=== PATIENT | female | born 1945 | race Caucasian/White ===

== ENCOUNTER → 2018-06-17 | Outpatient (CLI) | payer MEDICARE, BC | END | disposition home or self-care (01) | LOC: CFH 10:07 | PROVIDERS: ATTEND Internal Medicine Gastroenterology | DX: Z12.31 Encounter for screening mammogram for malignant neoplasm of breast (principal); K21.9 Gastro-esophageal reflux disease without esophagitis; R13.12 Dysphagia, oropharyngeal phase; E11.65 Type 2 diabetes mellitus with hyperglycemia; Z68.36 Body mass index [BMI] 36.0-36.9, adult | CPT/HCPCS: 77067; 78264; A9541 ==

== ENCOUNTER 2018-06-27 01:25 | Inpatient (IN) | payer MEDICARE, BC ==
[~2018-06-27] VITALS: Ht 170.2 cm; Wt 80.9 kg
[2018-06-27] MEDS ORDERED: methylPREDNISolone SOD SUCC 125 MG/2 ML ONE (01:28)
[2018-06-27] MEDS ORDERED: MAGNESIUM SULFATE PMX 2GM/50ML 50 ML IV ONE (01:30)
[2018-06-27] MEDS ORDERED: MAGNESIUM SULFATE PMX 1GM/100ML IV ONE (01:30)
[2018-06-27] MEDS ORDERED: PROPOFOL 100 ML IV PRN (01:36)
[2018-06-27] MEDS ORDERED: NS + 20MEQ KCL 1,000 ML IV SCH (01:54)
[2018-06-27 01:55] LABS: BASOPHILS # (AUTO) 0.02 x10^3/uL (0-0.1); BASOPHILS % (AUTO) 0 % (0-1); EOSINOPHILS # (AUTO) 0.37 x10^3/uL (0-0.4); EOSINOPHILS % (AUTO) 4 % (1-7); LYMPHOCYTES # (AUTO) 4.52 x10^3/uL (1-3.4); LYMPHOCYTES % (AUTO) 49 % (22-44); MD NO; MEAN CORPUSCULAR HGB CONC 33.8 g/dL (32.4-35.8); MEAN CORPUSCULAR VOLUME 91.5 fL (80-100); MEAN PLATELET VOLUME 9.4 fL (7.4-10.4); MONOCYTES # (AUTO) 0.72 x10^3/uL (0.2-0.8); MONOCYTES % (AUTO) 8 % (2-9); NEUTROPHILS # (AUTO) 3.69 x10^3/uL (1.8-6.8); NEUTROPHILS % (AUTO) 40 % (42-75); PLATELET COUNT 282 x10^3/uL (130-400); RED BLOOD COUNT 4.93 x10^6/uL (3.82-5.3); RED CELL DISTRIBUTION WIDTH 13.7 % (9.6-15.2)
[2018-06-27] MEDS ORDERED: ALBUTEROL NEB (01:59)
[2018-06-27] MEDS ORDERED: ALBUTEROL MDI (01:59)
[2018-06-27] MEDS ORDERED: NOVOLOG (01:59)
[2018-06-27] MEDS ORDERED: HUMALOG (01:59)
[2018-06-27] MEDS ORDERED: LORazepam 2 MG/ML, 1ML IVPush PRN (02:00)
[2018-06-27] MEDS ORDERED: DOCUSATE 100 MG CAPSULE PO PRN (02:00)
[2018-06-27] MEDS ORDERED: SODIUM CHLORIDE FLUSH 10ML SYR IVF PRN (02:00)
[2018-06-27] MEDS ORDERED: MIDAZOLAM 1 MG/ML, 5ML IVPush ONE (02:00)
[2018-06-27] MEDS ORDERED: ONDANSETRON 2MG/ML, 2ML IVPush PRN (02:00)
[2018-06-27] MEDS: methylPREDNISolone SOD SUCC 125 MG/2 ML IVPush SCH ×4 (02:00→20:08)
[2018-06-27] MEDS ORDERED: methylPREDNISolone SOD SUCC 125 MG/2 ML IVP ONE (02:00)
[2018-06-27] MEDS ORDERED: ALBUTEROL/IPRATROPIUM 2.5MG/0.5MG, 3 ML NPPB SCH (02:00)
[2018-06-27] MEDS ORDERED: SUCCINYLCHOLINE 20 MG/ML, 10ML IVPush ONE (02:00)
[2018-06-27] MEDS ORDERED: ETOMIDATE 20 MG/10 ML IV ONE (02:00)
[2018-06-27] MEDS ORDERED: SODIUM CHLORIDE FLUSH 10ML SYR IVF ONE (02:00)
[2018-06-27] MEDS ORDERED: POLYETHYLENE GLYCOL 17 GM PACKET PO PRN (02:00)
[2018-06-27] MEDS ORDERED: MORPHINE SULFATE 4 MG/ML, 1ML ONE (02:04)
[2018-06-27 02:07] LABS: ALANINE AMINOTRANSFERASE 32 U/L (12-78); ALBUMIN 3.3 g/dL (3.4-5.0); ANION GAP 9 mmol/L (5-15); CALCIUM 7.9 mg/dL (8.5-10.1); CHLORIDE 106 mmol/L (98-107); CREATININE 0.91 mg/dL (0.55-1.02)
[2018-06-27] MEDS: morphine SULFATE 10 MG/ML, 1ML IVPush PRN ×2 (02:08→15:37)
[2018-06-27 02:11] LABS: ALKALINE PHOSPHATASE 79 U/L (45-117); BILIRUBIN,TOTAL 0.7 mg/dL (0.2-1.0); PROTHROMBIN TIME 10.4 Seconds (9.6-11.5); TOTAL PROTEIN 7.7 g/dL (6.4-8.2); TROPONIN I < 0.015 ng/mL (0.000-0.045)
[2018-06-27] MEDS ORDERED: LORazepam 2 MG/ML, 1ML ONE (02:37)
[2018-06-27] MEDS ORDERED: CEFTRIAXONE PMX 1GM/50ML 50 ML ONE (02:44)
[2018-06-27] MEDS ORDERED: NS + 20MEQ KCL 1,000 ML IV ONE (02:45)
[2018-06-27] MEDS ORDERED: AZITHROMYCIN 500 MG in SODIUM CHLORIDE 0.9% 250 ML IVPB ONE (03:00)
[2018-06-27] MEDS ORDERED: CEFTRIAXONE 1,000 MG in SODIUM CHLORIDE 0.9% 50 ML IVPB ONE (03:00)
[2018-06-27] MEDS ORDERED: ENOXAPARIN 40 MG/0.4 ML ONE (03:05)
[2018-06-27] MEDS: ENOXAPARIN 40 MG/0.4 ML SQ SCH (03:06)
[2018-06-27] MEDS ORDERED: FENTANYL PF 100 MCG/2ML ONE ×3 (03:16→05:57)
[2018-06-27] MEDS ORDERED: LIDOCAINE-MPF 1%, 2ML ENDO PRN (03:30)
[2018-06-27] MEDS: INSULIN REGULAR 100 UNITS/ML, 3ML VIAL SQ-INSULIN SCH ×4 (03:30→21:11)
[2018-06-27] MEDS ORDERED: PHARMACY MAY ADJ FOR RENAL FX MC SCH (03:30)
[2018-06-27] MEDS: FENTANYL PF 100 MCG/2ML IVPush PRN ×4 (03:42→06:49)
[2018-06-27] MEDS: PROPOFOL 100 ML IV PRN ×4 (04:28→21:05)
[2018-06-27] MEDS ORDERED: BECL10.62 INH (05:48)
[2018-06-27] MEDS ORDERED: GEMF600T4 PO (05:48)
[2018-06-27] MEDS ORDERED: NAPR-856 PO (05:48)
[2018-06-27] MEDS ORDERED: VIT B COMPLEX PO (05:48)
[2018-06-27] MEDS ORDERED: PARO20TA4 PO (05:48)
[2018-06-27] MEDS ORDERED: ALBU6.7H INH (05:48)
[2018-06-27] MEDS ORDERED: PANT40TA5 PO (05:48)
[2018-06-27] MEDS ORDERED: MUPIROCIN 2% (05:48)
[2018-06-27] MEDS ORDERED: LISI-167 PO (05:48)
[2018-06-27] MEDS ORDERED: INSU100V5 SQ-INSULIN (05:51)
[2018-06-27] MEDS ORDERED: NPH,100V SQ-INSULIN ×2 (05:51→05:53)
[2018-06-27] MEDS ORDERED: ALBUTEROL/IPRATROPIUM 2.5MG/0.5MG, 3 ML ONE (07:09)
[2018-06-27] MEDS ORDERED: SODIUM CHLORIDE 0.9% 1,000ML IVBOLUS ONE (08:30)
[2018-06-27] MEDS: FAMOTIDINE 20 MG/2 ML IVPush SCH ×2 (09:47→20:08)
[2018-06-27] MEDS: SENNA/DOCUSATE TABLET PO SCH (09:48)
[2018-06-27] MEDS: SODIUM CHLORIDE 0.9% 1,000 ML IV SCH ×2 (09:49→23:43)
[2018-06-27] MEDS: ALBUTEROL/IPRATROPIUM 2.5MG/0.5MG, 3 ML INLINE SCH ×4 (10:30→22:10)
[2018-06-27] MEDS ORDERED: PROPOFOL 10 MG/ML, 100ML IV ONE (15:55)
[2018-06-27] MEDS ORDERED: SUCCINYLCHOLINE 20 MG/ML, 10ML ONE (15:55)
[2018-06-27] MEDS ORDERED: ROCURONIUM 10MG/ML,5ML ONE (15:55)
[2018-06-27] MEDS ORDERED: MIDAZOLAM 1 MG/ML, 5ML ONE (15:55)
[2018-06-27] MEDS ORDERED: ETOMIDATE 40 MG/20 ML ONE (15:55)
[2018-06-28] MEDS: PROPOFOL 100 ML IV PRN (01:35)
[2018-06-28] MEDS: ALBUTEROL/IPRATROPIUM 2.5MG/0.5MG, 3 ML INLINE SCH ×3 (01:46→11:00)
[2018-06-28] MEDS: methylPREDNISolone SOD SUCC 125 MG/2 ML IVPush SCH ×4 (03:04→20:29)
[2018-06-28] MEDS: ENOXAPARIN 40 MG/0.4 ML SQ SCH (03:05)
[2018-06-28] MEDS: INSULIN REGULAR 100 UNITS/ML, 3ML VIAL SQ-INSULIN SCH ×4 (03:15→20:37)
[2018-06-28 04:55] LABS: MEAN CORPUSCULAR HEMOGLOBIN 30.6 pg (27.0-34.8); MEAN CORPUSCULAR HGB CONC 33.4 g/dL (32.4-35.8); MEAN CORPUSCULAR VOLUME 91.7 fL (80-100); MEAN PLATELET VOLUME 9.6 fL (7.4-10.4); PLATELET COUNT 256 x10^3/uL (130-400); RED BLOOD COUNT 4.16 x10^6/uL (3.82-5.3); RED CELL DISTRIBUTION WIDTH 14.6 % (9.6-15.2)
[2018-06-28 05:04] LABS: ANION GAP 8 mmol/L (5-15); CALCIUM 6.9 mg/dL (8.5-10.1); CHLORIDE 112 mmol/L (98-107); CREATININE 0.68 mg/dL (0.55-1.02)
[2018-06-28 05:38] LABS: BASOPHILS # (AUTO) 0.05 x10^3/uL (0-0.1); BASOPHILS % (AUTO) 0 % (0-1); EOSINOPHILS # (AUTO) 0.03 x10^3/uL (0-0.4); EOSINOPHILS % (AUTO) 0 % (1-7); LYMPHOCYTES # (AUTO) 1.27 x10^3/uL (1-3.4); LYMPHOCYTES % (AUTO) 9 % (22-44); MD SCAN; MONOCYTES # (AUTO) 0.32 x10^3/uL (0.2-0.8); MONOCYTES % (AUTO) 2 % (2-9); NEUTROPHILS # (AUTO) 11.99 x10^3/uL (1.8-6.8); NEUTROPHILS % (AUTO) 88 % (42-75)
[2018-06-28] MEDS ORDERED: ALBUTEROL SULFATE 2.5 MG/3 ML NPPB PRN (09:00)
[2018-06-28] MEDS: MULTIVITS,STRESS FORMULA 1 TABLET PO SCH (09:00)
[2018-06-28] MEDS: FAMOTIDINE 20 MG/2 ML IVPush SCH (09:02)
[2018-06-28] MEDS: LISINOPRIL 10 MG TABLET PO SCH (09:03)
[2018-06-28] MEDS: PAROXETINE 20 MG TABLET PO SCH (09:03)
[2018-06-28] MEDS: GEMFIBROZIL 600 MG TABLET PO SCH ×2 (09:03→20:29)
[2018-06-28] MEDS: SENNA/DOCUSATE TABLET PO SCH (09:03)
[2018-06-28] MEDS: INSULIN GLARGINE 100 UNITS/ML, PEN SQ-INSULIN SCH (09:04)
[2018-06-28] MEDS: BUDESONIDE 0.5 MG/2 ML INHA NPPB SCH ×2 (09:11→19:16)
[2018-06-28] MEDS ORDERED: CEFTRIAXONE PMX 1GM/50ML 50 ML IV SCH (11:00)
[2018-06-28] MEDS ORDERED: AZITHROMYCIN 500 MG in SODIUM CHLORIDE 0.9% 250 ML IV SCH (11:30)
[2018-06-28] MEDS: ALBUTEROL/IPRATROPIUM 2.5MG/0.5MG, 3 ML NPPB SCH ×3 (14:59→23:32)
[2018-06-28] MEDS: FAMOTIDINE 20 MG TABLET PO SCH (20:29)
[2018-06-28] MEDS: ACETAMINOPHEN 325 MG TABLET PO PRN (21:46)
[2018-06-29] MEDS: methylPREDNISolone SOD SUCC 125 MG/2 ML IVPush SCH (03:59)
[2018-06-29] MEDS: ENOXAPARIN 40 MG/0.4 ML SQ SCH (03:59)
[2018-06-29] MEDS: INSULIN REGULAR 100 UNITS/ML, 3ML VIAL SQ-INSULIN SCH ×4 (04:00→20:42)
[2018-06-29] MEDS: ALBUTEROL/IPRATROPIUM 2.5MG/0.5MG, 3 ML NPPB SCH ×6 (04:06→23:00)
[2018-06-29 04:28] LABS: BASOPHILS # (AUTO) 0.04 x10^3/uL (0-0.1); BASOPHILS % (AUTO) 0 % (0-1); EOSINOPHILS % (AUTO) 0 % (1-7); LYMPHOCYTES # (AUTO) 1.32 x10^3/uL (1-3.4); LYMPHOCYTES % (AUTO) 10 % (22-44); MD NO; MEAN CORPUSCULAR HEMOGLOBIN 30.8 pg (27.0-34.8); MEAN CORPUSCULAR HGB CONC 33.4 g/dL (32.4-35.8); MEAN CORPUSCULAR VOLUME 92.1 fL (80-100); MEAN PLATELET VOLUME 9.4 fL (7.4-10.4); MONOCYTES # (AUTO) 0.37 x10^3/uL (0.2-0.8); MONOCYTES % (AUTO) 3 % (2-9); NEUTROPHILS # (AUTO) 11.39 x10^3/uL (1.8-6.8); NEUTROPHILS % (AUTO) 87 % (42-75); PLATELET COUNT 243 x10^3/uL (130-400); RED BLOOD COUNT 4.26 x10^6/uL (3.82-5.3); RED CELL DISTRIBUTION WIDTH 14.4 % (9.6-15.2)
[2018-06-29 04:40] LABS: CHLORIDE 112 mmol/L (98-107)
[2018-06-29 04:45] LABS: ANION GAP 8 mmol/L (5-15); CALCIUM 7.3 mg/dL (8.5-10.1); CREATININE 0.74 mg/dL (0.55-1.02)
[2018-06-29] MEDS: BUDESONIDE 0.5 MG/2 ML INHA NPPB SCH ×2 (06:40→21:00)
[2018-06-29 08:00] VITALS: BP 114/61
[2018-06-29] MEDS: INSULIN GLARGINE 100 UNITS/ML, PEN SQ-INSULIN SCH (08:58)
[2018-06-29] MEDS: FAMOTIDINE 20 MG TABLET PO SCH ×2 (08:59→20:41)
[2018-06-29] MEDS: GEMFIBROZIL 600 MG TABLET PO SCH ×2 (08:59→20:41)
[2018-06-29] MEDS: SENNA/DOCUSATE TABLET PO SCH (08:59)
[2018-06-29] MEDS: LISINOPRIL 10 MG TABLET PO SCH (09:00)
[2018-06-29] MEDS: MULTIVITS,STRESS FORMULA 1 TABLET PO SCH (09:00)
[2018-06-29] MEDS: DOXYCYCLINE 100MG TABLET PO SCH ×2 (09:00→20:41)
[2018-06-29] MEDS: PAROXETINE 20 MG TABLET PO SCH (09:00)
[2018-06-29 09:53] LABS: RAPID INFLUENZA A Negative (Negative); RAPID INFLUENZA B Negative (Negative)
[2018-06-29 11:49] VITALS: BP 128/66
[2018-06-29] MEDS: ACETAMINOPHEN 325 MG TABLET PO PRN (18:45)
[2018-06-29 19:08] VITALS: BP 138/72
[2018-06-30 01:25] VITALS: BP 130/68
[2018-06-30] MEDS: ALBUTEROL/IPRATROPIUM 2.5MG/0.5MG, 3 ML NPPB SCH ×6 (03:00→23:30)
[2018-06-30] MEDS: INSULIN REGULAR 100 UNITS/ML, 3ML VIAL SQ-INSULIN SCH ×4 (03:14→20:44)
[2018-06-30 05:42] LABS: BASOPHILS # (AUTO) 0.04 x10^3/uL (0-0.1); BASOPHILS % (AUTO) 0 % (0-1); EOSINOPHILS % (AUTO) 0 % (1-7); LYMPHOCYTES # (AUTO) 1.93 x10^3/uL (1-3.4); LYMPHOCYTES % (AUTO) 20 % (22-44); MD NO; MEAN CORPUSCULAR HEMOGLOBIN 31.1 pg (27.0-34.8); MEAN CORPUSCULAR VOLUME 91.5 fL (80-100); MEAN PLATELET VOLUME 9.6 fL (7.4-10.4); MONOCYTES # (AUTO) 0.59 x10^3/uL (0.2-0.8); MONOCYTES % (AUTO) 6 % (2-9); NEUTROPHILS # (AUTO) 7.13 x10^3/uL (1.8-6.8); NEUTROPHILS % (AUTO) 74 % (42-75); PLATELET COUNT 232 x10^3/uL (130-400); RED BLOOD COUNT 4.41 x10^6/uL (3.82-5.3); RED CELL DISTRIBUTION WIDTH 14.3 % (9.6-15.2)
[2018-06-30 05:56] LABS: CHLORIDE 107 mmol/L (98-107)
[2018-06-30 06:02] LABS: ANION GAP 8 mmol/L (5-15); CALCIUM 7.6 mg/dL (8.5-10.1); CREATININE 0.72 mg/dL (0.55-1.02); TRIGLYCERIDES 133 mg/dL (50-200)
[2018-06-30] MEDS: ACETAMINOPHEN 325 MG TABLET PO PRN ×2 (06:29→20:45)
[2018-06-30] MEDS: BUDESONIDE 0.5 MG/2 ML INHA NPPB SCH ×2 (06:50→19:30)
[2018-06-30 07:45] VITALS: BP 117/61
[2018-06-30] MEDS: INSULIN GLARGINE 100 UNITS/ML, PEN SQ-INSULIN SCH (08:35)
[2018-06-30] MEDS: SENNA/DOCUSATE TABLET PO SCH (08:35)
[2018-06-30] MEDS: GEMFIBROZIL 600 MG TABLET PO SCH ×2 (08:35→20:44)
[2018-06-30] MEDS: MULTIVITS,STRESS FORMULA 1 TABLET PO SCH (08:35)
[2018-06-30] MEDS: DOXYCYCLINE 100MG TABLET PO SCH ×2 (08:35→20:45)
[2018-06-30] MEDS: FAMOTIDINE 20 MG TABLET PO SCH ×2 (08:36→20:45)
[2018-06-30] MEDS: LISINOPRIL 10 MG TABLET PO SCH (08:36)
[2018-06-30] MEDS: PAROXETINE 20 MG TABLET PO SCH (08:36)
[2018-06-30] MEDS: ENOXAPARIN 40 MG/0.4 ML SQ SCH (08:38)
[2018-06-30 13:32] VITALS: BP 156/71
[2018-06-30] MEDS ORDERED: GUAIFENESIN ER 600 MG TABLET PO ONE (15:30)
[2018-06-30] MEDS ORDERED: DEXTROMETHORPHAN 30 MG/5 ML ORAL SOL PO PRN (16:00)
[2018-06-30] MEDS ORDERED: INSULIN GLARGINE 100 UNITS/ML, PEN SQ-INSULIN ONE (16:45)
[2018-06-30 19:54] VITALS: BP 148/71
[2018-06-30] MEDS: GUAIFENESIN ER 600 MG TABLET PO SCH (20:45)
[2018-07-01 00:59] VITALS: BP 126/73
[2018-07-01] MEDS: ALBUTEROL/IPRATROPIUM 2.5MG/0.5MG, 3 ML NPPB SCH ×3 (02:20→10:19)
[2018-07-01] MEDS: INSULIN REGULAR 100 UNITS/ML, 3ML VIAL SQ-INSULIN SCH ×2 (03:30→09:30)
[2018-07-01 05:43] LABS: BASOPHILS # (AUTO) 0.03 x10^3/uL (0-0.1); BASOPHILS % (AUTO) 0 % (0-1); EOSINOPHILS # (AUTO) 0.06 x10^3/uL (0-0.4); EOSINOPHILS % (AUTO) 1 % (1-7); LYMPHOCYTES # (AUTO) 2.98 x10^3/uL (1-3.4); LYMPHOCYTES % (AUTO) 32 % (22-44); MD NO; MEAN CORPUSCULAR HGB CONC 33.8 g/dL (32.4-35.8); MEAN CORPUSCULAR VOLUME 91.5 fL (80-100); MEAN PLATELET VOLUME 9.4 fL (7.4-10.4); MONOCYTES # (AUTO) 0.68 x10^3/uL (0.2-0.8); MONOCYTES % (AUTO) 7 % (2-9); NEUTROPHILS % (AUTO) 60 % (42-75); PLATELET COUNT 246 x10^3/uL (130-400); RED BLOOD COUNT 4.81 x10^6/uL (3.82-5.3); RED CELL DISTRIBUTION WIDTH 14.4 % (9.6-15.2)
[2018-07-01 05:53] LABS: ANION GAP 10 mmol/L (5-15); CHLORIDE 106 mmol/L (98-107); CREATININE 0.66 mg/dL (0.55-1.02)
[2018-07-01] MEDS: BUDESONIDE 0.5 MG/2 ML INHA NPPB SCH (06:39)
[2018-07-01 07:42] VITALS: BP 97/60
[2018-07-01] MEDS ORDERED: BENZONATATE 100 MG CAPSULE PO PRN (08:00)
[2018-07-01] MEDS: ENOXAPARIN 40 MG/0.4 ML SQ SCH (08:23)
[2018-07-01] MEDS: LISINOPRIL 10 MG TABLET PO SCH (09:00)
[2018-07-01] MEDS: SENNA/DOCUSATE TABLET PO SCH (09:00)
[2018-07-01] MEDS ORDERED: INSULIN GLARGINE 100 UNITS/ML, PEN SQ-INSULIN SCH (09:00)
[2018-07-01] MEDS ORDERED: FAMO20TA7 PO (10:48)
[2018-07-01] MEDS ORDERED: BENZ-17 PO (10:48)
[2018-07-01] MEDS ORDERED: GUAI600T31 PO (10:48)
[2018-07-01] MEDS ORDERED: DEXT30SU8 PO (10:48)
[2018-07-01] MEDS ORDERED: METH4TAB2 PO (10:48)
[2018-07-01] MEDS: MULTIVITS,STRESS FORMULA 1 TABLET PO SCH (11:18)
[2018-07-01] MEDS: GUAIFENESIN ER 600 MG TABLET PO SCH (11:19)
[2018-07-01] MEDS: FAMOTIDINE 20 MG TABLET PO SCH (11:19)
[2018-07-01] MEDS: PAROXETINE 20 MG TABLET PO SCH (11:20)
[2018-07-01] MEDS: GEMFIBROZIL 600 MG TABLET PO SCH (11:20)
[2018-07-01] MEDS: DOXYCYCLINE 100MG TABLET PO SCH (11:21)
[2018-07-01 12:43] VITALS: BP 106/68
== END 2018-07-01 14:50 | disposition home or self-care (01) | DRG 208 ==
LOC: SUATTDRO 01:53 → ED 02:00 → EDIP 02:43 → CCU 07:24 → 3NE 06-29 10:18 → DCLOUNGE 07-01 14:23
PROVIDERS: ADMIT Family Medicine; ATTEND Hospitalist
PROC: 5A1945Z Respiratory Ventilation, 24-96 Consecutive Hours (ICD-10-PCS; 2018-06-27)
PROC: 0BH17EZ Insertion of Endotracheal Airway into Trachea, Via Natural or Artificial Opening (ICD-10-PCS; 2018-06-27)
PROC: 5A09357 Assistance with Respiratory Ventilation, Less than 24 Consecutive Hours, Continuous Positive Airway Pressure (ICD-10-PCS; principal; 2018-06-28)
PROC: 5A09357 Assistance with Respiratory Ventilation, Less than 24 Consecutive Hours, Continuous Positive Airway Pressure (ICD-10-PCS; 2018-06-29)
PROC: 5A09357 Assistance with Respiratory Ventilation, Less than 24 Consecutive Hours, Continuous Positive Airway Pressure (ICD-10-PCS; 2018-06-30)
PROC: 5A09357 Assistance with Respiratory Ventilation, Less than 24 Consecutive Hours, Continuous Positive Airway Pressure (ICD-10-PCS; 2018-07-01)
DX: J96.01 Acute respiratory failure with hypoxia (principal); J15.9 Unspecified bacterial pneumonia; J45.901 Unspecified asthma with (acute) exacerbation; J98.11 Atelectasis; Z99.11 Dependence on respirator [ventilator] status; K21.9 Gastro-esophageal reflux disease without esophagitis; I25.10 Atherosclerotic heart disease of native coronary artery without angina pectoris; G51.0 Bell's palsy; F41.9 Anxiety disorder, unspecified; E11.9 Type 2 diabetes mellitus without complications; E66.9 Obesity, unspecified; F41.1 Generalized anxiety disorder; G47.33 Obstructive sleep apnea (adult) (pediatric); F32.9 Major depressive disorder, single episode, unspecified; K59.09 Other constipation; K58.9 Irritable bowel syndrome, unspecified; M19.90 Unspecified osteoarthritis, unspecified site; M79.7 Fibromyalgia; Z79.4 Long term (current) use of insulin; Z86.73 Personal history of transient ischemic attack (TIA), and cerebral infarction without residual deficits; Z90.710 Acquired absence of both cervix and uterus; Z90.49 Acquired absence of other specified parts of digestive tract; Z68.27 Body mass index [BMI] 27.0-27.9, adult; Z88.0 Allergy status to penicillin; Z88.8 Allergy status to other drugs, medicaments and biological substances
CPT/HCPCS: 36600; 71045; 80048; 80053; 82803; 82947; 82962; 83605; 83735; 83880; 84100; 84478; 84484; 85025; 85610; 85730; 87040; 87070; 87081; 87205; 87400; 93005; 94002; 94003; 94150; 94640; 94660; 96365; 96375; 99285; G0378; J0456; J0696; J1650; J1815; J2250; J2704; J3010; J3480; J7620; J7626; J0330; J2060; J2270; J2930; J3475; J3490; J7030; J7050; J7512

== ENCOUNTER 2018-07-06 12:09 | Emergency (ER) | payer MEDICARE, BC ==
[~2018-07-06] VITALS: Ht 160 cm; Wt 85.5 kg
[~2018-07-06 12:09] MED LIST: ALBU6.7H INH; ALBUTEROL MDI; ALBUTEROL NEB; BECL10.62 INH; BENZ-17 PO; DEXT30SU8 PO; FAMO20TA7 PO; GEMF600T4 PO; GUAI600T31 PO; HUMALOG; INSU100V5 SQ-INSULIN; LISI-167 PO; METH4TAB2 PO; MUPIROCIN 2%; NAPR-856 PO; NOVOLOG; NPH,100V SQ-INSULIN; PANT40TA5 PO; PARO20TA4 PO; VIT B COMPLEX PO
[2018-07-06 12:48] LABS: BASOPHILS # (AUTO) 0.21 x10^3/uL (0-0.1); BASOPHILS % (AUTO) 2 % (0-1); EOSINOPHILS # (AUTO) 0.16 x10^3/uL (0-0.4); EOSINOPHILS % (AUTO) 1 % (1-7); LYMPHOCYTES # (AUTO) 3.24 x10^3/uL (1-3.4); LYMPHOCYTES % (AUTO) 29 % (22-44); MD NO; MEAN CORPUSCULAR HGB CONC 33.9 g/dL (32.4-35.8); MEAN CORPUSCULAR VOLUME 91.4 fL (80-100); MEAN PLATELET VOLUME 9.1 fL (7.4-10.4); MONOCYTES % (AUTO) 8 % (2-9); NEUTROPHILS # (AUTO) 6.66 x10^3/uL (1.8-6.8); NEUTROPHILS % (AUTO) 60 % (42-75); PLATELET COUNT 271 x10^3/uL (130-400); RED CELL DISTRIBUTION WIDTH 14.4 % (9.6-15.2)
[2018-07-06 12:57] LABS: INTERNATIONAL NORMALIZED RATIO 0.99 (0.93-1.1); PROTHROMBIN TIME 10.3 Seconds (9.6-11.5)
[2018-07-06 12:59] LABS: ALBUMIN 3.4 g/dL (3.4-5.0); ANION GAP 10 mmol/L (5-15); CALCIUM 8.6 mg/dL (8.5-10.1); CHLORIDE 105 mmol/L (98-107); CREATININE 0.71 mg/dL (0.55-1.02)
[2018-07-06 13:03] LABS: TROPONIN I < 0.015 ng/mL (0.000-0.045)
[2018-07-06 14:48] VITALS: BP 109/76
== END 2018-07-06 15:51 | disposition home or self-care (01) ==
LOC: ED 12:28
DX: R56.9 Unspecified convulsions (principal); K21.9 Gastro-esophageal reflux disease without esophagitis; I25.10 Atherosclerotic heart disease of native coronary artery without angina pectoris; E11.9 Type 2 diabetes mellitus without complications; M19.90 Unspecified osteoarthritis, unspecified site; Z86.73 Personal history of transient ischemic attack (TIA), and cerebral infarction without residual deficits
CPT/HCPCS: 36415; 70450; 70551; 71045; 80048; 82040; 84484; 85025; 85610; 93005; 99285

== ENCOUNTER → 2018-09-08 | Outpatient (CLI) | payer MEDICARE, BC | END | disposition home or self-care (01) | LOC: RAD 12:40 | PROVIDERS: ATTEND Internal Medicine Critical Care Medicine | DX: J45.909 Unspecified asthma, uncomplicated (principal) | CPT/HCPCS: 71046 ==

== ENCOUNTER → 2018-11-12 | Outpatient (CLI) | payer MEDICARE, BC ==
[~2018-11-12] MED LIST changes: -GEMF600T4 PO; +GEMF600T8 PO
== END | disposition home or self-care (01) ==
LOC: CFH 09:36
PROVIDERS: ATTEND Nurse Practitioner Family
DX: R22.1 Localized swelling, mass and lump, neck (principal); R94.2 Abnormal results of pulmonary function studies
CPT/HCPCS: 70490

== ENCOUNTER → 2018-12-03 | Outpatient (CLI) | payer MEDICARE, BC ==
[2018-12-03 11:08] LABS: ALANINE AMINOTRANSFERASE 32 U/L (12-78); ALBUMIN 3.6 g/dL (3.4-5.0); ANION GAP 5 mmol/L (5-15); CALCIUM 8.7 mg/dL (8.5-10.1); CHLORIDE 106 mmol/L (98-107); CHOLESTEROL, TOTAL 153 mg/dL (140-239); CREATININE 0.83 mg/dL (0.55-1.02)
[2018-12-03 11:19] LABS: ALKALINE PHOSPHATASE 73 U/L (45-117); BILIRUBIN,TOTAL 0.7 mg/dL (0.2-1.0); CHOL/HDL RATIO 2.5; HDL CHOL % 40 % (28-40); HDL CHOLESTEROL (DIRECT) 61 mg/dL (40-60); LDL CHOLESTEROL,CALCULATED 66 mg/dL (54-169); LDL/HDL RATIO 1.1 (0.5-3.0); TOTAL PROTEIN 7.7 g/dL (6.4-8.2); TRIGLYCERIDES 131 mg/dL (50-200); VLDL CHOLESTEROL 26 mg/dL (0-25)
[2018-12-03 12:31] LABS: HEMOGLOBIN A1C 9.4 % (4.2-6.3)
== END | disposition home or self-care (01) ==
LOC: LAB 10:43
PROVIDERS: ATTEND Family Medicine Adult Medicine
DX: Z13.220 Encounter for screening for lipoid disorders (principal); E11.9 Type 2 diabetes mellitus without complications; I10 Essential (primary) hypertension
CPT/HCPCS: 36415; 80053; 80061; 83036

== ENCOUNTER → 2019-01-29 | Outpatient (CLI) | payer MEDICARE, BC | END | disposition home or self-care (01) | LOC: EDSTATUS 01-26 09:30 → CFH 12:50 → EDSTATUS 14:00 | PROVIDERS: ATTEND Otolaryngology | DX: R22.1 Localized swelling, mass and lump, neck (principal); R05 Cough | CPT/HCPCS: 76536 ==

== ENCOUNTER 2019-07-15 15:16 | Emergency (ER) | payer MEDICARE, BC ==
[~2019-07-15] VITALS: Ht 160 cm; Wt 88.0 kg
[~2019-07-15 15:16] MED LIST changes: -ALBU6.7H INH; +ALBU6.7H8 INH
--- NOTE | 2019-07-15 15:20 | NUR ---
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
--- NOTE | 2019-07-15 15:42 | NUR ---
PATIENT BROUGTH BACK FROM TRIAGE WITH CHIEF COMPLAINT OF ABD PAIN AND DARK STOOL STARTING THIS AM. PATIENT DENIES CP, SOB. THE PATIENT IS ALERT, ORIENTED, WARM AND DRY.
--- NOTE | 2019-07-15 15:47 | NUR ---
PATIENT STATES SHE HAD HEMORROIDS BANDED ON FRIDAY
[2019-07-15] MEDS ORDERED: ONDANSETRON 2MG/ML, 2ML IVPush ONE (16:00)
[2019-07-15] MEDS ORDERED: FAMOTIDINE 20 MG/2 ML IVPush ONE (16:00)
[2019-07-15] MEDS ORDERED: SODIUM CHLORIDE FLUSH 10ML SYR IVF ONE (16:00)
[2019-07-15] MEDS ORDERED: MORPHINE SULFATE 4 MG/ML, 1ML IVPush PRN (16:00)
[2019-07-15 16:17] LABS: BASOPHILS # (AUTO) 0.07 x10^3/uL (0-0.1); BASOPHILS % (AUTO) 1 % (0-1); EOSINOPHILS # (AUTO) 0.32 x10^3/uL (0-0.4); EOSINOPHILS % (AUTO) 5 % (1-7); LYMPHOCYTES # (AUTO) 2.11 x10^3/uL (1-3.4); LYMPHOCYTES % (AUTO) 34 % (22-44); MD NO; MEAN CORPUSCULAR HEMOGLOBIN 31.1 pg (27.0-34.8); MEAN PLATELET VOLUME 9.5 fL (7.4-10.4); MONOCYTES # (AUTO) 0.52 x10^3/uL (0.2-0.8); MONOCYTES % (AUTO) 8 % (2-9); NEUTROPHILS # (AUTO) 3.28 x10^3/uL (1.8-6.8); NEUTROPHILS % (AUTO) 52 % (42-75); PLATELET COUNT 294 x10^3/uL (130-400); RED BLOOD COUNT 4.91 x10^6/uL (3.82-5.3); RED CELL DISTRIBUTION WIDTH 14.1 % (9.6-15.2)
[2019-07-15 16:25] LABS: INTERNATIONAL NORMALIZED RATIO 0.96 (0.93-1.1); PROTHROMBIN TIME 10.1 Seconds (9.6-11.5)
[2019-07-15 16:27] LABS: ALANINE AMINOTRANSFERASE 31 U/L (12-78); ALBUMIN 3.1 g/dL (3.4-5.0); ANION GAP 5 mmol/L (5-15); CALCIUM 8.8 mg/dL (8.5-10.1); CHLORIDE 108 mmol/L (98-107); CREATININE 0.75 mg/dL (0.55-1.02)
[2019-07-15 16:29] LABS: ALKALINE PHOSPHATASE 80 U/L (45-117); BILIRUBIN,TOTAL 0.6 mg/dL (0.2-1.0); TOTAL PROTEIN 7.3 g/dL (6.4-8.2)
[2019-07-15] MEDS ORDERED: ONDANSETRON 2MG/ML, 2ML ONE (16:35)
[2019-07-15] MEDS ORDERED: MORPHINE SULFATE 4 MG/ML, 1ML ONE (16:35)
[2019-07-15] MEDS ORDERED: FAMOTIDINE 20 MG/2 ML ONE (16:35)
--- NOTE | 2019-07-15 16:42 | NUR ---
PATIENT MEDICATED, RESTING IN BED, CALL LIGHT IN REACH.
[2019-07-15] MEDS ORDERED: OMNIPAQUE 350 MG/ML, 100ML BOTTLE ONE (17:16)
[2019-07-15] MEDS ORDERED: HYDROcodone/APAP 5/325 TABLET ONE (17:46)
[2019-07-15] MEDS ORDERED: OXYcodone/APAP 5/325MG TABLET ONE (17:51)
--- NOTE | 2019-07-15 17:52 | NUR ---
DISCHARGE INSTRUCTIONS REVIEWED
[2019-07-15 17:57] VITALS: BP 149/74
[2019-07-15] MEDS ORDERED: OXYcodone/APAP 5/325MG TABLET PO ONE (18:00)
== END 2019-07-15 18:04 | disposition home or self-care (01) ==
LOC: ED 16:23
DX: K29.00 Acute gastritis without bleeding (principal); I10 Essential (primary) hypertension; E11.9 Type 2 diabetes mellitus without complications; F32.9 Major depressive disorder, single episode, unspecified; I25.10 Atherosclerotic heart disease of native coronary artery without angina pectoris; F41.1 Generalized anxiety disorder; M19.90 Unspecified osteoarthritis, unspecified site; Z86.73 Personal history of transient ischemic attack (TIA), and cerebral infarction without residual deficits
CPT/HCPCS: 36415; 74177; 80053; 83690; 85025; 85610; 96374; 96375; 99284; J2270; J2405; J3490; Q9967

== ENCOUNTER 2019-08-19 16:25 | Outpatient (CLI) | payer MEDICARE, BC | END 2019-08-19 23:59 | disposition home or self-care (01) | LOC: RAD 16:25 | PROVIDERS: ATTEND Family Medicine Adult Medicine | DX: M81.8 Other osteoporosis without current pathological fracture (principal); M77.32 Calcaneal spur, left foot; M25.775 Osteophyte, left foot ==

== ENCOUNTER → 2019-09-20 | Outpatient (CLI) | payer MEDICARE, BC ==
[2019-09-20 14:03] LABS: ALBUMIN 3.5 g/dL (3.4-5.0); ANION GAP 5 mmol/L (5-15); CALCIUM 8.6 mg/dL (8.5-10.1); CHLORIDE 107 mmol/L (98-107)
[2019-09-20 14:06] LABS: ALANINE AMINOTRANSFERASE 31 U/L (12-78); ALKALINE PHOSPHATASE 75 U/L (45-117); BILIRUBIN,TOTAL 0.7 mg/dL (0.2-1.0); CHOL/HDL RATIO 2.6; CHOLESTEROL, TOTAL 147 mg/dL (140-239); CREATININE 0.87 mg/dL (0.55-1.02); HDL CHOL % 39 % (28-40); HDL CHOLESTEROL (DIRECT) 57 mg/dL (40-60); LDL CHOLESTEROL,CALCULATED 68 mg/dL (54-169); LDL/HDL RATIO 1.2 (0.5-3.0); TOTAL PROTEIN 7.5 g/dL (6.4-8.2); TRIGLYCERIDES 112 mg/dL (50-200); VLDL CHOLESTEROL 22 mg/dL (0-25)
== END | disposition home or self-care (01) ==
LOC: LAB 13:33
PROVIDERS: ATTEND Family Medicine Adult Medicine
DX: E11.9 Type 2 diabetes mellitus without complications (principal); E78.5 Hyperlipidemia, unspecified; I10 Essential (primary) hypertension
CPT/HCPCS: 36415; 80053; 80061; 83036

== ENCOUNTER 2019-10-05 13:19 | Outpatient (CLI) | payer MEDICARE, BC ==
[2019-10-05] MEDS ORDERED: LIDOCAINE-MPF 1%, 5ML ONE (14:27)
== END 2019-10-05 23:59 | disposition home or self-care (01) ==
LOC: RAD 13:19
PROVIDERS: ATTEND Otolaryngology
DX: R22.1 Localized swelling, mass and lump, neck (principal); H90.3 Sensorineural hearing loss, bilateral; E11.9 Type 2 diabetes mellitus without complications; E78.5 Hyperlipidemia, unspecified; Z88.5 Allergy status to narcotic agent; Z88.0 Allergy status to penicillin; Z79.84 Long term (current) use of oral hypoglycemic drugs; Z79.4 Long term (current) use of insulin; Z79.899 Other long term (current) drug therapy
CPT/HCPCS: 76942

== ENCOUNTER → 2019-11-17 | Outpatient (CLI) | payer MEDICARE, BC | END | disposition home or self-care (01) | LOC: RAD 09:22 | PROVIDERS: ATTEND Internal Medicine Gastroenterology | DX: K21.9 Gastro-esophageal reflux disease without esophagitis (principal); J39.2 Other diseases of pharynx | CPT/HCPCS: 78264; A9541 ==

== ENCOUNTER → 2020-03-01 | Outpatient (CLI) | payer MEDICARE, BC ==
[2020-03-01 10:45] LABS: ANION GAP 3 mmol/L (5-15); CHLORIDE 106 mmol/L (98-107)
[2020-03-01 10:50] LABS: CREATININE 0.82 mg/dL (0.55-1.02)
== END | disposition home or self-care (01) ==
LOC: STAR 09:25
PROVIDERS: ATTEND Anesthesiology
DX: Z01.89 Encounter for other specified special examinations (principal); R97.1 Elevated cancer antigen 125 [CA 125]; R00.1 Bradycardia, unspecified
CPT/HCPCS: 36415; 80048; 93005

== ENCOUNTER 2020-03-22 08:44 | Outpatient (CLI) | payer MEDICARE, BC ==
[~2020-03-22 08:44] MED LIST changes: -PANT40TA5 PO; +PANT40TA6 PO
[2020-03-22 09:10] LABS: ALANINE AMINOTRANSFERASE 35 U/L (12-78); ALBUMIN 3.6 g/dL (3.4-5.0); ANION GAP 7 mmol/L (5-15); CHLORIDE 106 mmol/L (98-107)
[2020-03-22 09:13] LABS: ALKALINE PHOSPHATASE 97 U/L (45-117); BILIRUBIN,TOTAL 0.8 mg/dL (0.2-1.0); CHOL/HDL RATIO 2.6; CHOLESTEROL, TOTAL 151 mg/dL (140-239); CREATININE 0.89 mg/dL (0.55-1.02); HDL CHOL % 38 % (28-40); HDL CHOLESTEROL (DIRECT) 58 mg/dL (40-60); LDL CHOLESTEROL,CALCULATED 66 mg/dL (54-169); LDL/HDL RATIO 1.1 (0.5-3.0); TOTAL PROTEIN 7.8 g/dL (6.4-8.2); TRIGLYCERIDES 134 mg/dL (50-200); VLDL CHOLESTEROL 27 mg/dL (0-25)
== END 2020-03-22 23:59 | disposition home or self-care (01) ==
LOC: LAB 08:44
PROVIDERS: ATTEND Family Medicine Adult Medicine
DX: Z13.220 Encounter for screening for lipoid disorders (principal); E11.9 Type 2 diabetes mellitus without complications; R53.1 Weakness
CPT/HCPCS: 36415; 80053; 80061; 83036

== ENCOUNTER → 2020-04-21 | Outpatient (CLI) | payer MEDICARE, BC ==
[~2020-04-21] MED LIST changes: +PANT40TA5 PO; -PANT40TA6 PO
== END | disposition home or self-care (01) ==
LOC: RAD 08:31
PROVIDERS: ATTEND Internal Medicine Gastroenterology
DX: K22.2 Esophageal obstruction (principal); K44.9 Diaphragmatic hernia without obstruction or gangrene; E11.65 Type 2 diabetes mellitus with hyperglycemia; K64.2 Third degree hemorrhoids; M62.9 Disorder of muscle, unspecified
CPT/HCPCS: 74220

== ENCOUNTER → 2020-05-05 | Outpatient (CLI) | payer MEDICARE, BC ==
[~2020-05-05] MED LIST changes: +OMNIPAQUE 350 MG/ML, 150 ML BOTTLE ONE; -PANT40TA5 PO; +PANT40TA6 PO
== END | disposition home or self-care (01) ==
LOC: CFH 08:13
PROVIDERS: ATTEND Otolaryngology
DX: J98.4 Other disorders of lung (principal); K44.9 Diaphragmatic hernia without obstruction or gangrene; R59.0 Localized enlarged lymph nodes; J38.01 Paralysis of vocal cords and larynx, unilateral; J39.2 Other diseases of pharynx; R11.10 Vomiting, unspecified; E11.65 Type 2 diabetes mellitus with hyperglycemia; K64.2 Third degree hemorrhoids; M62.9 Disorder of muscle, unspecified
CPT/HCPCS: 36415; 70491; 71260; 82565; 84520; Q9967

== ENCOUNTER → 2020-05-09 | Outpatient (CLI) | payer MEDICARE, BC ==
[~2020-05-09] MED LIST changes: -OMNIPAQUE 350 MG/ML, 150 ML BOTTLE ONE
[2020-05-09 12:31] LABS: ANION GAP 5 mmol/L (5-15); CALCIUM 8.8 mg/dL (8.5-10.1); CHLORIDE 107 mmol/L (98-107); CREATININE 0.72 mg/dL (0.55-1.02)
== END | disposition home or self-care (01) ==
LOC: STAR 11:37
PROVIDERS: ATTEND Anesthesiology
DX: Z01.818 Encounter for other preprocedural examination (principal); Z01.89 Encounter for other specified special examinations; R79.1 Abnormal coagulation profile
CPT/HCPCS: 36415; 80048; 93005

== ENCOUNTER → 2020-05-29 | Outpatient (CLI) | payer MEDICARE, BC ==
[2020-05-29 08:26] LABS: MEAN CORPUSCULAR HEMOGLOBIN 30.8 pg (27.0-34.8); MEAN CORPUSCULAR HGB CONC 33.9 g/dL (32.4-35.8); MEAN PLATELET VOLUME 9.3 fL (7.4-10.4); PLATELET COUNT 284 x10^3/uL (130-400); RED BLOOD COUNT 5.12 x10^6/uL (3.82-5.3); RED CELL DISTRIBUTION WIDTH 14.4 % (9.6-15.2)
[2020-05-29 08:44] LABS: ALANINE AMINOTRANSFERASE 34 U/L (12-78); ALBUMIN 3.5 g/dL (3.4-5.0); ANION GAP 6 mmol/L (5-15); CALCIUM 8.8 mg/dL (8.5-10.1); CHLORIDE 105 mmol/L (98-107); CHOLESTEROL, TOTAL 143 mg/dL (140-239); CREATININE 0.78 mg/dL (0.55-1.02); TRIGLYCERIDES 104 mg/dL (50-200); VLDL CHOLESTEROL 21 mg/dL (0-25)
[2020-05-29 08:45] LABS: ALKALINE PHOSPHATASE 83 U/L (45-117); BILIRUBIN,TOTAL 0.8 mg/dL (0.2-1.0); CHOL/HDL RATIO 2.5; HDL CHOL % 41 % (28-40); HDL CHOLESTEROL (DIRECT) 58 mg/dL (40-60); LDL CHOLESTEROL,CALCULATED 64 mg/dL (54-169); LDL/HDL RATIO 1.1 (0.5-3.0); TOTAL PROTEIN 7.5 g/dL (6.4-8.2)
== END | disposition home or self-care (01) ==
LOC: LAB 08:07
PROVIDERS: ATTEND Family Medicine Adult Medicine
DX: E11.9 Type 2 diabetes mellitus without complications (principal); R53.1 Weakness
CPT/HCPCS: 36415; 80053; 80061; 83036; 85027

== ENCOUNTER → 2020-06-15 | Outpatient (CLI) | payer MEDICARE, BC ==
[~2020-06-15] MED LIST changes: +GADOTERATE 10 MMOL/20 ML SYR ONE
== END | disposition home or self-care (01) ==
LOC: RAD 07:55
PROVIDERS: ATTEND Otolaryngology
DX: K44.9 Diaphragmatic hernia without obstruction or gangrene (principal); H90.3 Sensorineural hearing loss, bilateral; R13.10 Dysphagia, unspecified
CPT/HCPCS: 70553; 74220; A9575

== ENCOUNTER 2020-08-09 08:55 | Outpatient (CLI) | payer MEDICARE, BC ==
[~2020-08-09 08:55] MED LIST changes: -GADOTERATE 10 MMOL/20 ML SYR ONE
== END 2020-08-09 23:59 | disposition home or self-care (01) ==
LOC: RAD 08:55
PROVIDERS: ATTEND Otolaryngology
DX: R13.10 Dysphagia, unspecified (principal)
CPT/HCPCS: 74230